=== PATIENT | male | born 1940 | race Hispanic/Latino ===

== ENCOUNTER 2020-03-27 21:14 | Observation (INO) | payer MEDICAID, MEDICARE, OTHER ==
[~2020-03-27] VITALS: Ht 175.3 cm; Wt 81.6 kg
--- NOTE | 2020-03-27 11:50 | NUR ---
ARRIVAL Pt transferred to unit via stretcher. Received report from ER nurse. Assumed care. No signs of distress noted.
--- NOTE | 2020-03-27 21:14 | NUR ---
ADMITTED TO ROOM #1 TRANSPORTED VIA EMS. ALERT AND ORIENTED X3. O2 SAT 95% ON RA. VITAL WNL.
--- NOTE | 2020-03-27 21:25 | NUR ---
LOW BP/URINE COLLECTED BP 96/67 RECHECKED BP BP 96/27 NEW ORDER FOR SALINE BOLUS URINE COLLED FOR UA
[2020-03-27] MEDS ORDERED: NS 1000ML 1,000 ML ONE (21:29)
[2020-03-27] MEDS ORDERED: NS 1000ML 1,000 ML IV STA (21:30)
--- NOTE | 2020-03-27 21:37 | ER.PDOC ---
General Stated Complaint: AMS Time seen by MD: 21:33 Source: patient, EMS, EMS notes reviewed Exam Limitations: no limitations History of Present Illness Initial Comments Altered mental status, no chest pain or SOB. Timing/Duration: 1-3 hours Character of AMS: disoriented Usually: orientedx3 Allergies: Coded Allergies: No Known Drug Allergies (Verified Allergy, Unknown, 03/27/20) Home Meds Reported Medications Escitalopram Oxalate (ESCITALOPRAM OXALATE) 10 Mg Tablet, 10 MG PO DAILY24, TAB 03/27/20 Divalproex Sodium (DIVALPROEX SODIUM) 500 Mg Tablet.dr, 250 MG PO HS 03/27/20 Cyanocobalamin (Vitamin B-12) (Vitamin B12) 2,500 Mcg Tablet, 100 MCG PO DAILY24, TAB 03/27/20 Carvedilol (CARVEDILOL) 12.5 Mg Tablet, 12.5 MG PO BID, TAB 03/27/20 Fluticasone/Vilanterol (Breo Ellipta 100-25 Mcg INH) 1 Each Aer.pow.ba, 1 EACH IH DAILY24, PKG 03/27/20 Aspirin (ASPIR 81) 81 Mg Tablet.dr, 81 MG PO DAILY24 03/27/20 Amlodipine Besylate (AMLODIPINE BESYLATE) 10 Mg Tablet, 10 MG PO DAILY24, TAB 03/27/20 Albuterol Sulfate (ALBUTEROL SULFATE) 0.63 Mg/3 Ml Vial.neb, 0.63 MG IH Q2, EA 03/27/20 Quetiapine Fumarate (SEROQUEL) 25 Mg Tablet, 25 MG PO HS, TAB 03/27/20 Carboxymethylcellulos/Glycerin (REFRESH OPTIVE EYE DROPS) 15 Ml Drops, 15 ML OP Q4, DROP 03/27/20 Medroxyprogesterone Acetate (PROVERA) 5 Mg Tablet, 5 MG PO DAILY24, TAB 03/27/20 Omeprazole (OMEPRAZOLE) 40 Mg Capsule.dr, 40 MG PO DAILY24, CAPSULE 03/27/20 Potassium Chloride (POTASSIUM CHLORIDE) 10 Meq Capsule.er, 10 MEQ PO DAILY24, CAP.SR 03/27/20 Metformin Hcl (METFORMIN HCL) 500 Mg Tablet, 500 MG PO TID, TAB 03/27/20 Magnesium Hydroxide (MILK OF MAGNESIA) 400 Mg/5 Ml Oral.susp, 400 MG PO Q6HR 03/27/20 Lisinopril (LISINOPRIL) 40 Mg Tablet, 40 MG PO DAILY24, TAB 03/27/20 Insulin Detemir (LEVEMIR) 100 Unit/1 Ml Vial, 25 UNIT SQ HS, VIAL 03/27/20 Past Medical History Medical History: COPD Review of Systems Constitutional: no symptoms reported Respiratory: no symptoms reported Cardiovascular: no symptoms reported Gastrointestinal: no symptoms reported Psychiatric/Neurological: see HPI All Other Systems: Reviewed and Negative Physical Exam General Appearance: alert, no distress HEENT: no apparent trauma, EOM's intact, no nystagmus, PERRL, ENT inspection nml, pharynx nml, airway intact, oral exam nml Neuro/Psych: nml speech/cognition, nml mood/affect, disoriented to place, disoriented to time Cranial Nerves: nml as tested Peripheral Exam: motor nml, sensation nml, reflexes nml Neck: supple, non-tender, no carotid bruit Respiratory: no resp distress, breath sounds nml CVS: reg rate & rhythm, heart sounds nml Abdomen: non-tender, no organomegaly, no distention Skin: color nml, no rash, warm/dry Extremities: non-tender, nml ROM, no pedal edema Results/Orders Results/Orders Orders - GABRIEL WORKMAN MD Urinalysis (03/27/20 21:25) 0.9 % Sodium Chloride (Ns 1000ml) (03/27/20 21:29) Cbc With Auto Diff (03/27/20 21:30) Comprehensive Metabolic Panel (03/27/20 21:30) Creatine Kinase (03/27/20 21:30) Creatine Kinase Mb (03/27/20 21:30) Troponin I (03/27/20 21:30) Probnp B-Type Safe And Vault Mechanic (03/27/20 21:30) PT (03/27/20 21:30) Partial Thromboplastin Time. (03/27/20 21:30) Xr Chest 1v (03/27/20 21:30) Ekg-Routine (03/27/20 21:30) Lactic Acid(Ml) (03/27/20 21:30) 0.9 % Sodium Chloride (Ns 1000ml) (03/27/20 21:30) Arterial Blood Gas (03/27/20 21:36) Vital Signs Date Time Temp Pulse Resp B/P (MAP) Pulse Ox O2 Delivery O2 Flow Rate FiO2 03/27/20 22:47 68 18 154/91 (112) 99 Room Air 03/27/20 21:46 98.9 70 18 122/67 (85) 95 Room Air 03/27/20 21:46 98.9 70 18 03/27/20 21:46 98.9 70 18 95 Administered Medications Medications (Trade) Dose Ordered Sig/Maria De Jesus Route PRN Reason Start Time Stop Time Status Last Admin Dose Admin Sodium Chloride 1,000 ml @ 1,200 mls/hr Q50M STAT IV 03/27/20 21:30 03/27/20 22:19 DC 03/27/20 22:01 1,200 MLS/HR Laboratory Tests Test 03/27/20 21:36 03/27/20 21:46 Blood Gas Sample Site RT BRACIAL ARTERY Blood pH 7.481 (7.350-7.450) Blood Gas PCO2 25.4 mmHg (35.0-45.0) L Blood Gas PO2 90.7 mmHg (80.0-100.0) Blood Gas HCO3 18.5 mmol/L (22.0-26.0) L Blood Gas Base Excess -3.3 mmol/L (-2.0-2.0) L Arterial Blood Oxygen Saturation 97.1 % (94.0-97.00) H Deoxyhemoglobin 2.7 % (0.0-5.0) Carboxyhemoglobin 5.3 % (0.0-3.9) H Methemoglobin 0.4 % (0.00-5.0) Total Hemoglobin 13.6 % (12.0-17.8) Total Oxygen Concentration 17.6 % (13.5-17.5) H Blood Gas Temperature 37.0 Oxygen Delivery Method ROOM AIR FiO2 0.21 % (20-101) L Total Carbon Dioxide 19.3 mmol/L (23-27) L White Blood Count 8.2 10^3/uL (4.5-11.0) Red Blood Count 4.21 10^6/uL (4.50-5.90) L Hemoglobin 12.7 g/dL (13.9-16.3) L Hematocrit 37.1 % (37.0-53.0) Mean Corpuscular Volume 88.1 fL (78-100) Mean Corpuscular Hemoglobin 30.2 pg (26-34) Mean Corpuscular Hemoglobin Concent 34.2 g/dL (33-36.5) Red Cell Distribution Width 14.2 % (11.5-14.5) Platelet Count 193 10^3/uL (150-400) Mean Platelet Volume 9.4 fL (7.8-11.0) Neutrophils (%) (Auto) 64.9 % (41.0-85.0) Lymphocytes (%) (Auto) 23.5 % (24.0-44.0) L Monocytes (%) (Auto) 9.3 % (5.0-12.0) Neutrophils # (Auto) 5.3 10^3/uL (1.8-7.7) Lymphocytes # (Auto) 1.93 10^3/uL1 (1.0-4.8) Monocytes # (Auto) 0.8 10^3/uL (0.3-0.8) Absolute Immature Granulocyte (auto 0.05 10^3 u/L (0-2) Absolute Eosinophils (auto) 0.1 10^3/uL (0.0-0.2) Immature Granulocytes % 0.60 % (0.00-0.50) H Eosinophils % 1.3 % (0.0-5.0) Basophils % 0.4 % (0.0-0.2) H Basophils # 0.0 10^3/uL (0.0-0.1) Prothrombin Time 10.3 SEC (9.3-11.3) Prothrombin Time INR (Non-Therap) 1.0 Activated Partial Thromboplast Time 20.8 SEC (24.67-30.72) Sodium Level 133 mmol/L (132-145) Potassium Level 3.7 mmol/L (3.6-5.2) Chloride Level 99.0 mmol/L (96-109) Carbon Dioxide Level 24.4 mmol/L (20.0-32) Anion Gap 13.3 Blood Urea Nitrogen 15 mg/dL (7-18) Creatinine 2.11 mg/dL (0.59-1.40) *H Estimated GFR () 36.9 (>/=60) Est GFR (CKD-EPI)(Non-Afr Bermudian) 30.5 (>/=60) BUN/Creatinine Ratio 7.0 Glucose Level 196 mg/dL (70-110) H Lactic Acid Level 2.7 mmol/L (0.5-1.9) *H Calcium Level 8.8 mg/dL (8.4-10.5) Total Bilirubin 0.3 mg/dL (0.2-1.0) Aspartate Amino Transferase (AST) 26 U/L (0-35) Alanine Aminotransferase (ALT) 24 U/L (12-78) Alkaline Phosphatase 67 U/L (50-136) Total Creatine Kinase 286 U/L (39-308) Creatine Kinase MB 3.8 ng/mL (0.5-3.6) H Troponin I < 0.02 ng/mL (0.00-0.05) Pro-B-Type Natriuretic Peptide 345 pg/mL (0-450) Total Protein 7.1 g/dL (6.4-8.2) Albumin 3.4 g/dL (3.4-5.0) Globulin 3.7 EKG/XRAY/CT/US XRAY: chest (No active disease) CT Comments: No acute intracranial abnormality Departure Time of Disposition: 22:56 Disposition: 09 ADMITTED INPATIENT Impression: Primary Impression: Altered mental status, unspecified Additional Impressions: BRANDYN (acute kidney injury) Dehydration Condition: Stable Comments Admitted to Dr. Kaye Duration or Time Spent with Pa: 60 min Problem Qualifiers Primary Impression: Altered mental status, unspecified Altered mental status type: unspecified Qualified Codes: R41.82 - Altered mental status, unspecified GABRIEL WORKMAN MD Mar 27, 2020 21:37
--- NOTE | 2020-03-27 21:45 | PCM.EKG ---
[facility] Test Date: 2020-03-27 Test Time: 21:28:58 Pat Name: DILLON FUENTES Department: Patient ID: [facility]-[id number] Room: 341 Gender: M Note Teller: NATAN : 1940 Requested By: GABRIEL WORKMAN Order Number: [id number] Reading MD: Gabriel WORKMAN Measurements Intervals [place] Rate: 65 P: 34 [place]: 206 QRS: 84 QRSD: 153 T: 22 QT: 428 QTc: 445 Interpretive Statements Sinus rhythm Right bundle branch block Baseline wander in lead(s) I,II,III,aVR,aVF,V1 No previous ECG available for comparison Electronically Signed On 03-29-2020 3:21:32 CDT by Gabriel WORKMAN Please click the below link to view image of tracing.
[2020-03-27 21:46] VITALS: BP 122/67
[2020-03-27 21:54] LABS: BASOPHIL % 0.4 % (0.0-0.2); EOSINOPHIL # 0.1 10^3/uL (0.0-0.2); EOSINOPHIL % 1.3 % (0.0-5.0); LYMPHOCYTES # 1.93 10^3/uL1 (1.0-4.8); LYMPHOCYTES % 23.5 % (24.0-44.0); MEAN CORP HGB 30.2 pg (26-34); MONOCYTES # 0.8 10^3/uL (0.3-0.8); MONOCYTES % 9.3 % (5.0-12.0); NEUTROPHIL # 5.3 10^3/uL (1.8-7.7); NEUTROPHILS % 64.9 % (41.0-85.0); PLATELET COUNT 193 10^3/uL (150-400); RED CELL DISTRIBUTION WIDTH 14.2 % (11.5-14.5)
[2020-03-27 21:56] LABS: ABG PCO2 25.4 mmHg (35.0-45.0); ABG PH 7.481 (7.350-7.450); BE(B) -3.3 mmol/L (-2.0-2.0); HCO3act 18.5 mmol/L (22.0-26.0); pO2 90.7 mmHg (80.0-100.0)
--- NOTE | 2020-03-27 22:15 | NUR ---
UNABLE TO VOID X3 NOTIFIED DR. RIOS. HE IS GOING TO CALL DR. HERNANDEZ ABOUT POSSIBLE ADMISSION AND LOCKWOOD PLACEMENT.
--- NOTE | 2020-03-27 22:17 | NUR ---
LAB CRITICAL LAB LACTIC ACID 2.7 REPORTED AT THIS TIME. EDP NOTIFIED.
--- NOTE | 2020-03-27 22:29 | DIREP ---
PROCEDURE:CHEST 1 VIEW COMPARISON:None. INDICATIONS:Altered mental status FINDINGS: LUNGS/PLEURA:No significant pulmonary parenchymal abnormalities. No effusions. VASCULATURE:Normal. Unremarkable pulmonary vasculature. CARDIAC:Normal. No cardiac silhouette abnormality or cardiomegaly. MEDIASTINUM:Normal. No visible mass or adenopathy. BONES:Diffuse degenerative changes. OTHER:Negative. CONCLUSION:No acute pulmonary process. Dictated by: Scotty Street M.D. on 03/27/2020 at 10:26 PM
[2020-03-27 22:37] LABS: ALANINE AMINOTRANSFERASE(ML) 24 U/L (12-78); ALKALINE PHOSPHATASE 67 U/L (50-136); ASPARTATE AMINO TRANSFERASE 26 U/L (0-35); CALCIUM 8.8 mg/dL (8.4-10.5); CARBON DIOXIDE 24.4 mmol/L (20.0-32); GLUCOSE 196 mg/dL (70-110)
[2020-03-27 22:47] VITALS: BP 154/91
--- NOTE | 2020-03-27 22:47 | NUR ---
DAVID ALEMAN MBA ON PHONE WITH DR. HERNANDEZ REGARDING POSSIBLE PT ADMISSION.
[2020-03-27] MEDS ORDERED: HNS 1000ML/KCL 20MEQ 1,000 ML IV STA (22:58)
[2020-03-27] MEDS ORDERED: FLUT1AER IH (23:08)
[2020-03-27] MEDS ORDERED: CARV12.52 PO (23:08)
[2020-03-27] MEDS ORDERED: LISI40TA PO (23:08)
[2020-03-27] MEDS ORDERED: MAGN400O7 PO (23:08)
[2020-03-27] MEDS ORDERED: INSU100V13 SQ (23:08)
[2020-03-27] MEDS ORDERED: ALBU0.63 IH (23:08)
[2020-03-27] MEDS ORDERED: POTA10CA PO (23:08)
[2020-03-27] MEDS ORDERED: CYAN25008 PO (23:08)
[2020-03-27] MEDS ORDERED: AMLO10TA8 PO (23:08)
[2020-03-27] MEDS ORDERED: OMEP40CA41 PO (23:08)
[2020-03-27] MEDS ORDERED: METF500T17 PO (23:08)
[2020-03-27] MEDS ORDERED: QUET25TA5 PO (23:08)
[2020-03-27] MEDS ORDERED: ASPI-485 PO (23:08)
[2020-03-27] MEDS ORDERED: ESCI10TA PO (23:08)
[2020-03-27] MEDS ORDERED: CARB15DR5 OP (23:08)
[2020-03-27] MEDS ORDERED: MEDR5TAB PO (23:08)
[2020-03-27] MEDS ORDERED: DIVA-54 PO (23:08)
--- NOTE | 2020-03-27 23:22 | NUR ---
16FR LOCKWOOD INSERTED 16FR LOCKWOOD INSERTED UTILIZING STRERILE TECHNIQUE. ATTACHED TO RIGHT LEG WITH STICKER TO HOLD IN PLACE. 190ML OF YELLOW COLORED URINE EMPTIED FROM LOCKWOOD BAG. UA COLLECTED AND BROUGHT TO THE LAB.
[2020-03-27 23:27] LABS: APPEARANCE,URINE CLEAR (CLEAR); BILIRUBIN,URINE NEGATIVE (NEGATIVE); UA COLOR YELLOW (YELLOW)
--- NOTE | 2020-03-27 23:45 | NUR ---
TRANSPORTED TO M/S FLOOR VIA STRETCHER TRANSPORTED TO /S ROOM # 341 BY MEGHAN MULLEN. THIS NURSE PHONED REPORT TO HA ORTIZ. [address]. HAD 1000ML IN THROUGH IV BOLUS AND 190ML OUTPUT VIA LOCKWOOD CATH. ALERT AND ORIENTED X3 UPON TRANSPORT.
[2020-03-27 23:50] VITALS: BP 148/80
[2020-03-28] MEDS ORDERED: HYDR12.58 PO (01:27)
[2020-03-28] MEDS ORDERED: TAMS-14 PO (01:27)
[2020-03-28] MEDS ORDERED: DULA1.5P SQ (01:27)
[2020-03-28] MEDS ORDERED: FURO-80 PO (01:27)
[2020-03-28] MEDS ORDERED: FENT1PAT75 TP (01:27)
[2020-03-28] MEDS ORDERED: TRAM-47 PO (01:27)
[2020-03-28] MEDS ORDERED: INSU100V5 IJ (01:27)
[2020-03-28] MEDS ORDERED: GABA100C7 PO (01:27)
[2020-03-28] MEDS ORDERED: ESCI5SOL2 PO (01:27)
[2020-03-28 07:30] VITALS: BP 132/75
--- NOTE | 2020-03-28 08:15 | NUR ---
DISCHARGE PLAN CM AT BEDSIDE TO VISIT WITH PATIENT REGARDING D/C PLAN AND GOALS. PATIENT IS A GROUP HOME RESIDENT AT [facility]. HE DOES USE A WALKER AND CANE AT THE FACILITY. PER TJ HINES WITH [facility] PATIENT IS USUALLY ABLE TO AMBULATE INDEPENDENTLY WITH HIS WALKER AND PERFORM ADLS. THE PHYSICIAN WHO OVERSEES PATIENTS AT THE FACILITY IS DR LAISHA YARBROUGH. DISCHARGE GOAL IS FOR PATIENT TO D/C BACK TO [facility] NUMBER TO CALL REPORT IS [phone].
[2020-03-28 09:28] VITALS: BP 132/75
[2020-03-28] MEDS ORDERED: VENTOLIN IH PRN (10:30)
[2020-03-28 12:19] VITALS: BP 131/67
[2020-03-28] MEDS ORDERED: PROTONIX PO SCH (13:00)
[2020-03-28] MEDS ORDERED: NORVASC PO SCH (13:00)
[2020-03-28] MEDS ORDERED: ASPIRIN EC PO SCH (13:00)
[2020-03-28] MEDS ORDERED: FLOMAX PO SCH (13:00)
[2020-03-28] MEDS ORDERED: MORPHINE SULFATE IV PRN (13:00)
[2020-03-28] MEDS ORDERED: PROVERA PO SCH (13:00)
[2020-03-28] MEDS ORDERED: CeleXA PO SCH (13:00)
[2020-03-28] MEDS ORDERED: NORCO 5MG PO PRN (13:00)
[2020-03-28 13:08] LABS: CALCIUM 8.8 mg/dL (8.4-10.5); CARBON DIOXIDE 27.7 mmol/L (20.0-32)
--- NOTE | 2020-03-28 14:34 | DIREP ---
PROCEDURE:CT HEAD OR BRAIN W/O CONTRAST COMPARISON:None. INDICATIONS:Encephalopathy TECHNIQUE:CT images were created without intravenous contrast. FINDINGS: VENTRICLES:There is mild prominence of the ventricles and cortical sulci consistent with age related involutional changes. CEREBRUM:Small foci of diminished attenuation in the supratentorial white matter consistent with mild leukoaraiosis. CEREBELLUM:Negative. BRAINSTEM:Negative. BASAL CISTERNS:Negative. SKULL:Normal. SINUSES:Normal. OTHER:None CONCLUSION: 1. No acute intracranial abnormality. 2. Mild age related senescent changes. Dictated by: Caleb Null M.D. on 03/28/2020 at 02:30 PM
--- NOTE | 2020-03-28 15:20 | PRM.DC ---
Subjective Subjective Date of Discharge: Mar 28, 2020 Time of Request to Discharge: 15:11 Exam Vital Signs Vital Signs Date Time Temp Pulse Resp B/P (MAP) Pulse Ox O2 Delivery O2 Flow Rate FiO2 03/28/20 13:59 71 131/67 03/28/20 12:19 97.5 19 93 Room Air General Appearance: Alert, Oriented X3, Cooperative, No acute distress HEENT: Atraumatic, PERRLA, EOMI, Mucous membr. moist/pink Respiratory: Clear to auscultation, Normal air movement Cardiovascular: Regular rate, Normal S1, Normal S2, No murmurs Abdominal: Normal bowel sounds, Soft, No tenderness, No hepatospenomegaly, No masses Extremities: No clubbing, No cyanosis, No edema, Normal pulses, No tenderness/swelling Skin: No rash, No breakdown, No lesions Neuro: Normal gait, Normal speech, Strength at 5/5 X4 ext, Normal tone, Sensation intact, Cranial nerves 3-12 NL, Reflexes 2+ Psych/Mental Status: Mental status NL, Mood NL VTE VTE Risk Total Score: 3 VTE Risk Score VTE Risk: Score 0-1 = Low Risk (Aggressive mobilization; early ambulation; no VTE prophylaxis required) Score 2: Moderate Risk (Intermittent/Pneumatic Compression Device OR Lovenox/Heparin/Coumadin) Score 3-4: High Risk (Intermittent/Pneumatic Compression Device AND Lovenox/Heparin/Coumadin) Score > or =5: Highest Risk (Intermittent/Pneumatic Compression Device AND Lovenox/Heparin/Coumadin) Antico:Hep/LMWH/Coum/Xarelto: Yes Mechanical device ordered: No Objective Vitals and I/O Vital Sign - Last 24 Hours 03/27/20 03/27/20 03/27/20 03/27/20 21:46 21:46 21:46 22:47 Temp 98.9 98.9 98.9 Pulse 70 70 70 68 Resp 18 18 18 18 B/P (MAP) 122/67 (85) 154/91 (112) Pulse Ox 95 95 99 O2 Delivery Room Air Room Air 03/27/20 03/28/20 03/28/20 03/28/20 23:50 02:39 03:37 07:30 Temp 97.8 97.7 Pulse 70 69 Resp 20 18 B/P (MAP) 148/80 (102) 132/75 (94) Pulse Ox 98 94 O2 Delivery Room Air Room Air Room Air Room Air 03/28/20 03/28/20 03/28/20 03/28/20 09:28 10:25 10:29 10:33 Temp 97.7 Pulse 69 68 70 Resp 18 18 18 18 B/P (MAP) 132/75 (94) Pulse Ox 90 90 94 O2 Delivery Room Air 03/28/20 03/28/20 12:19 13:59 Temp 97.5 Pulse 71 71 Resp 19 B/P (MAP) 131/67 (88) 131/67 Pulse Ox 93 O2 Delivery Room Air Intake and Output 03/28/20 07:00 Intake Total 1000 ml Balance 1000 ml All Results(Lab/Rad) Laboratory Tests Test 03/27/20 21:36 03/27/20 21:46 03/27/20 23:12 03/28/20 04:32 Blood Gas Sample Site RT BRACIAL ARTERY Blood Gas pH 7.481 Blood Gas PCO2 25.4 mmHg Blood Gas PO2 90.7 mmHg Blood Gas HCO3 18.5 mmol/L Blood Gas Base Excess -3.3 mmol/L Arterial Blood Oxygen Saturation 97.1 % Deoxyhemoglobin 2.7 % Carboxyhemoglobin 5.3 % Methemoglobin 0.4 % Total Hemoglobin 13.6 % Total Oxygen Concentration 17.6 % Blood Gas Temperature 37.0 Oxygen Delivery Method (LAB) ROOM AIR FiO2 0.21 % Total Carbon Dioxide 19.3 mmol/L White Blood Count 8.2 10^3/uL Red Blood Count 4.21 10^6/uL Hemoglobin 12.7 g/dL Hematocrit 37.1 % Mean Corpuscular Volume 88.1 fL Mean Corpuscular Hemoglobin 30.2 pg Mean Corpuscular Hemoglobin Concent 34.2 g/dL Red Cell Distribution Width 14.2 % Platelet Count 193 10^3/uL Mean Platelet Volume 9.4 fL Neutrophils (%) (Auto) 64.9 % Lymphocytes (%) (Auto) 23.5 % Monocytes (%) (Auto) 9.3 % Neutrophils # (Auto) 5.3 10^3/uL Lymphocytes # (Auto) 1.93 10^3/uL1 Monocytes # (Auto) 0.8 10^3/uL Absolute Immature Granulocyte (auto 0.05 10^3 u/L Absolute Eosinophils (auto) 0.1 10^3/uL Immature Granulocytes % 0.60 % Eosinophils % 1.3 % Basophils % 0.4 % Basophils # 0.0 10^3/uL Prothrombin Time 10.3 SEC Prothrombin Time INR (Non-Therap) 1.0 Activated Partial Thromboplast Time 20.8 SEC Sodium Level 133 mmol/L Potassium Level 3.7 mmol/L Chloride Level 99.0 mmol/L Carbon Dioxide Level 24.4 mmol/L Anion Gap 13.3 Blood Urea Nitrogen 15 mg/dL Creatinine 2.11 mg/dL Estimated GFR () 36.9 Est GFR (CKD-EPI)(Non-Afr Bhutanese) 30.5 BUN/Creatinine Ratio 7.0 Glucose Level 196 mg/dL Lactic Acid Level 2.7 mmol/L Calcium Level 8.8 mg/dL Total Bilirubin 0.3 mg/dL Aspartate Amino Transf (AST/SGOT) 26 U/L Alanine Aminotransferase (ALT/SGPT) 24 U/L Alkaline Phosphatase 67 U/L Total Creatine Kinase 286 U/L Creatine Kinase MB 3.8 ng/mL Troponin I < 0.02 ng/mL Pro-B-Type Natriuretic Peptide 345 pg/mL Total Protein 7.1 g/dL Albumin 3.4 g/dL Globulin 3.7 Urine Collection Type CCMS Urine Color YELLOW Urine Appearance CLEAR Urine Bilirubin NEGATIVE MG/DL Urine Ketones NEGATIVE Urine Specific [place] 1.015 Urine pH 7.0 Urine Protein NEGATIVE Urine Urobilinogen 1.0 Urine Nitrate NEGATIVE Urine Leukocyte Esterase NEGATIVE Urine Blood NEGATIVE Urine Glucose NORMAL Bedside Glucose 175 Test 03/28/20 06:00 03/28/20 07:30 03/28/20 11:29 03/28/20 12:44 Lactic Acid Level 0.8 mmol/L Bedside Glucose 158 258 Sodium Level 135 mmol/L Potassium Level 3.9 mmol/L Chloride Level 100.0 mmol/L Carbon Dioxide Level 27.7 mmol/L Anion Gap 11.2 Blood Urea Nitrogen 11 mg/dL Creatinine 1.25 mg/dL Estimated GFR () 67.6 Est GFR (CKD-EPI)(Non-Afr [place]utanese) 55.9 BUN/Creatinine Ratio 8.0 Glucose Level 238 mg/dL Calcium Level 8.8 mg/dL Total Bilirubin 0.4 mg/dL Aspartate Amino Transf (AST/SGOT) 28 U/L Alanine Aminotransferase (ALT/SGPT) 26 U/L Alkaline Phosphatase 72 U/L Ammonia 22 umol/L Total Protein 7.2 g/dL Albumin 3.4 g/dL Globulin 3.8 Current Medications Medications (Trade) Dose Ordered Sig/Maria De Jesus Route PRN Reason Start Time Stop Time Status Last Admin Dose Admin Sodium Chloride 1,000 ml @ ud STK-MED ONCE .ROUTE 03/27/20 21:29 03/27/20 21:31 DC Sodium Chloride 1,000 ml @ 1,200 mls/hr Q50M STAT IV 03/27/20 21:30 03/27/20 22:19 DC 03/27/20 22:01 Potassium Chloride/Sodium Chloride 1,000 ml @ 100 mls/hr Q10H STAT IV 03/27/20 22:58 03/28/20 08:57 DC 03/28/20 00:50 Albuterol Sulfate (Ventolin) 2.5 mg RTQ6 PRN IH WHEEZING 03/28/20 10:30 04/27/20 10:29 03/28/20 10:22 Amlodipine Besylate (Norvasc) 10 mg DAILY PO 03/28/20 13:00 04/27/20 12:59 03/28/20 13:59 Aspirin (Aspirin Ec) 81 mg DAILY PO 03/28/20 13:00 04/27/20 12:59 03/28/20 14:02 Carvedilol (Coreg) 12.5 mg BID PO 03/28/20 21:00 04/27/20 20:59 Citalopram Hydrobromide (CeleXA) 20 mg DAILY PO 03/28/20 13:00 04/27/20 12:59 03/28/20 13:59 Gabapentin (Neurontin) 300 mg BID PO 03/28/20 21:00 04/27/20 20:59 Magnesium Hydroxide (Milk Of Magnesia) 5 ml Q6HR PO 03/28/20 18:00 04/27/20 17:59 Medroxyprogesterone Acetate (Provera) 5 mg DAILY24 PO 03/28/20 13:00 03/28/20 13:56 DC Quetiapine Fumarate (Seroquel) 25 mg HS PO 03/28/20 21:00 04/27/20 20:59 Tamsulosin HCl (Flomax) 0.4 mg DAILY PO 03/28/20 13:00 04/27/20 12:59 03/28/20 14:02 Divalproex Sodium (Depakote Ec) 250 mg HS PO 03/28/20 21:00 04/27/20 20:59 Insulin Glargine (Lantus) 25 unit HS SQ 03/28/20 21:00 04/27/20 20:59 Pantoprazole Sodium (Protonix) 40 mg DAILY PO 03/28/20 13:00 04/27/20 12:59 03/28/20 14:02 Acetaminophen/ Hydrocodone Bitart ([place] 5mg) 1 ea Q6HR PRN PO PAIN 4 - 6 03/28/20 13:00 04/27/20 12:59 03/28/20 14:02 Morphine Sulfate (Morphine Sulfate) 2 mg Q4H PRN IV PAIN 4 - 6 03/28/20 13:00 04/27/20 12:59 Budesonide (Pulmicort) 0.5 mg RTBID IH 03/28/20 21:00 04/27/20 20:59 Medication Reconciliation Scheduled Albuterol Sulfate (Albuterol Sulfate), 0.63 MG IH Q2, (Reported) Amlodipine Besylate (Amlodipine Besylate), 10 MG PO DAILY24, (Reported) Aspirin (Aspir 81), 81 MG PO DAILY24, (Reported) Carboxymethylcellulos/Glycerin (Refresh Optive Eye Drops), 15 ML OP Q4, (Reported) Carvedilol (Carvedilol), 12.5 MG PO BID, (Reported) Cyanocobalamin (Vitamin B-12) (Vitamin B12), 100 MCG PO DAILY24, (Reported) Divalproex Sodium (Divalproex Sodium), 250 MG PO HS, (Reported) Dulaglutide (Trulicity), 1.5 MG SQ Q7D, (Reported) Escitalopram Oxalate (Escitalopram Oxalate), 10 MG PO DAILY24, (Reported) Escitalopram Oxalate (Escitalopram Oxalate), 5 MG PO DAILY24, (Reported) Fentanyl 25 Mcg/Hr (Duragesic 25 Mcg/Hr), 1 EACH TP Q72H, (Reported) Fluticasone/Vilanterol (Breo Ellipta 100-25 Mcg INH), 1 EACH IH DAILY24, (Reported) Furosemide (Lasix), 40 MG PO DAILY24, (Reported) Gabapentin (Gabapentin), 300 MG PO BID, (Reported) Hydrochlorothiazide (Hydrochlorothiazide), 12.5 MG PO DAILY24, (Reported) Insulin Detemir (Levemir), 25 UNIT SQ HS, (Reported) Insulin Regular, Human (Humulin R), 100 UNIT IJ AC, (Reported) Lisinopril (Lisinopril), 40 MG PO DAILY24, (Reported) Magnesium Hydroxide (Milk Of Magnesia), 400 MG PO Q6HR, (Reported) Medroxyprogesterone Acetate (Provera), 5 MG PO DAILY24, (Reported) Metformin Hcl (Metformin Hcl), 500 MG PO TID, (Reported) Omeprazole (Omeprazole), 40 MG PO DAILY24, (Reported) Potassium Chloride (Potassium Chloride), 10 MEQ PO DAILY24, (Reported) Quetiapine Fumarate (Seroquel), 25 MG PO HS, (Reported) Tamsulosin Hcl (Flomax), 0.4 MG PO DAILY24, (Reported) Scheduled PRN Tramadol Hcl (Ultram), 50 MG PO Q8 PRN for pain, (Reported) Plan Assessment Acute metabolic encephalopathy secondary to fentanyl patch Acute kidney injury with significantly improved renal function prior to discharge Lactic acidosis secondary to tissue hypoxia from fentanyl patch Essential hypertension Diabetes mellitus COPD Plan My Orders - MAYNOR MORTON MD Procedure Category Date Status Time Albuterol Sulfate PHA 03/28/20 In Process (Ventolin) 10:30 Resuscitation Status CODE 03/28/20 Transmitted 10:14 Ct Head Wo Contrast CT 03/28/20 Resulted 12:30 Ammonia LAB 03/28/20 Complete 12:30 Comprehensive LAB 03/28/20 Complete Metabolic Panel 12:30 Amlodipine Besylate PHA 03/28/20 In Process (Norvasc) 13:00 Aspirin (Aspirin Ec) PHA 03/28/20 In Process 13:00 Carvedilol (Coreg) PHA 03/28/20 In Process 21:00 Magnesium Hydroxide PHA 03/28/20 In Process (Milk Of Magnesia) 18:00 Medroxyprogesterone PHA 03/28/20 Complete Acetate (Provera) 13:00 Quetiapine Fumarate PHA 03/28/20 In Process (Seroquel) 21:00 Tamsulosin Hcl PHA 03/28/20 In Process (Flomax) 13:00 (Nf) Cyanocobalamin PHA 03/28/20 Complete (Vitamin B-12) ([place] 13:00 Divalproex Sodium PHA 03/28/20 In Process (Depakote Ec) 21:00 (Nf) Dulaglutide PHA 03/28/20 In Process (Trulicity) 13:00 (Nf) Escitalopram PHA 03/28/20 Complete Oxalate 13:00 (NF) PHA 03/28/20 Complete Fluticasone/Vilanterol 13:00 Insulin PHA 03/28/20 In Process Glargine,Hum.Rec.Anlog 21:00 Pantoprazole Sodium PHA 03/28/20 In Process (Protonix) 13:00 Hydrocodone/Acetaminophen PHA 03/28/20 In Process ([place] 5mg) 13:00 Morphine Sulfate PHA 03/28/20 In Process (Morphine Sulfate) 13:00 Gabapentin (Neurontin) PHA 03/28/20 In Process 21:00 Citalopram PHA 03/28/20 In Process Hydrobromide (Celexa) 13:00 Budesonide (Pulmicort) PHA 03/28/20 In Process 21:00 MAYNOR MORTON MD Mar 28, 2020 15:20
--- NOTE | 2020-03-28 15:42 | PCM.HP ---
History of Present Illness Reason for Visit: (1) Altered mental status, unspecified ICD Code: R41.82 - Altered mental status, unspecified SNOMED: 476617114 Was this Problem Present on Ad: Yes-DX present @time ofIP Hx of Present Illness This is a 79-year-old male patient who has history of essential hypertension, diabetes mellitus, chronic of the pulmonary disease, possible seizure disorder has been sent from assisted as patient has been extremely lethargic after patient was started on fentanyl patch for the first time at assisted because of her chronic pain. Otherwise no documented history of fever, travel. Denies any complaints of chest pain, cough, cold or congestion. No abdominal or urinary symptoms. Subsequently patient had evaluation in the emergency department and patient was found to be having significant lactic acidosis but patient has a normal urinalysis and chest x-ray. Otherwise the patient did not have any fever and white cell count was abnormal. Patient was also noted to be having acute kidney injury and so patient has been started on IV fluids and subsequently patient has been admitted to internal medicine service. Review of Systems Constitutional: No: Fever, Chills, Sweats, Weakness, Malaise, Other Eyes: No: Pain, Vision change, Conjunctivae inflammation, Eyelid inflammation, Other, Redness ENT: No: Ear pain, Ear discharge, Nose pain, Nose discharge, Nose congestion, Mouth pain, Mouth swelling, Throat pain, Throat swelling, Other Respiratory: No: Cough, Dry, Shortness of breath, SOB with excertion, Wheezing, Hemoptysis, Pleuritic Pain, Sputum, Wheezing, Other Cardiovascular: No: Chest Pain, Palpitations, Orthopnea, Paroxysmal Noc. Dyspnea, Edema, Lt Headedness, Other Gastrointestinal: No: Nausea, Vomiting, Abdominal Pain, Diarrhea, Constipation, Melena, Hematochezia, Other Genitourinary: No Dysuria, No Frequency, No Incontinence, No Hematuria, No Retention, No Other Musculoskeletal: back pain; No: other, neck pain, shoulder pain, arm pain, hand pain, leg pain, foot pain Skin: No: Rash, Lesions, Jaundice, Bruising, Other Neurological: No: Weakness, Numbness, Incoordination, Change in speech, Confusion, Seizures, Other Allergies: Coded Allergies: No Known Drug Allergies (Verified Allergy, Unknown, 03/27/20) Scheduled Albuterol Sulfate (Albuterol Sulfate), 0.63 MG IH Q2, (Reported) Amlodipine Besylate (Amlodipine Besylate), 10 MG PO DAILY24, (Reported) Aspirin (Aspir 81), 81 MG PO DAILY24, (Reported) Carboxymethylcellulos/Glycerin (Refresh Optive Eye Drops), 15 ML OP Q4, (Reported) Carvedilol (Carvedilol), 12.5 MG PO BID, (Reported) Cyanocobalamin (Vitamin B-12) (Vitamin B12), 100 MCG PO DAILY24, (Reported) Divalproex Sodium (Divalproex Sodium), 250 MG PO HS, (Reported) Dulaglutide (Trulicity), 1.5 MG SQ Q7D, (Reported) Escitalopram Oxalate (Escitalopram Oxalate), 10 MG PO DAILY24, (Reported) Escitalopram Oxalate (Escitalopram Oxalate), 5 MG PO DAILY24, (Reported) Fentanyl 25 Mcg/Hr (Duragesic 25 Mcg/Hr), 1 EACH TP Q72H, (Reported) Fluticasone/Vilanterol (Breo Ellipta 100-25 Mcg INH), 1 EACH IH DAILY24, (Reported) Furosemide (Lasix), 40 MG PO DAILY24, (Reported) Gabapentin (Gabapentin), 300 MG PO BID, (Reported) Hydrochlorothiazide (Hydrochlorothiazide), 12.5 MG PO DAILY24, (Reported) Insulin Detemir (Levemir), 25 UNIT SQ HS, (Reported) Insulin Regular, Human (Humulin R), 100 UNIT IJ AC, (Reported) Lisinopril (Lisinopril), 40 MG PO DAILY24, (Reported) Magnesium Hydroxide (Milk Of Magnesia), 400 MG PO Q6HR, (Reported) Medroxyprogesterone Acetate (Provera), 5 MG PO DAILY24, (Reported) Metformin Hcl (Metformin Hcl), 500 MG PO TID, (Reported) Omeprazole (Omeprazole), 40 MG PO DAILY24, (Reported) Potassium Chloride (Potassium Chloride), 10 MEQ PO DAILY24, (Reported) Quetiapine Fumarate (Seroquel), 25 MG PO HS, (Reported) Tamsulosin Hcl (Flomax), 0.4 MG PO DAILY24, (Reported) Scheduled PRN Tramadol Hcl (Ultram), 50 MG PO Q8 PRN for pain, (Reported) VTE VTE Risk Total Score: 3 VTE Risk Score VTE Risk: Score 0-1 = Low Risk (Aggressive mobilization; early ambulation; no VTE prophylaxis required) Score 2: Moderate Risk (Intermittent/Pneumatic Compression Device OR Lovenox/Heparin/Coumadin) Score 3-4: High Risk (Intermittent/Pneumatic Compression Device AND Lovenox/Heparin/Coumadin) Score > or =5: Highest Risk (Intermittent/Pneumatic Compression Device AND Lovenox/Heparin/Coumadin) Antico:Hep/LMWH/Coum/Xarelto: Yes Mechanical device ordered: No VTE VTE Present on Admission: No Currently receiving anticoagul: No VTE Risk Total Score: 3 Antico:Hep/LMWH/Coum/Xarelto: Yes Mechanical device ordered: No Exam Vital Signs Vital Signs Date Time Temp Pulse Resp B/P (MAP) Pulse Ox O2 Delivery O2 Flow Rate FiO2 03/28/20 13:59 71 131/67 03/28/20 12:19 97.5 19 93 Room Air General Appearance: Alert, Oriented X3, Cooperative, No acute distress HEENT: Atraumatic, PERRLA, EOMI, Mucous membr. moist/pink Respiratory: Clear to auscultation, Normal air movement Cardiovascular: Regular rate, Normal S1, Normal S2, No murmurs Abdominal: Normal bowel sounds, Soft, No tenderness, No hepatospenomegaly, No masses Extremities: No clubbing, No cyanosis, No edema, Normal pulses, No tenderness/swelling Skin: No rash, No breakdown, No lesions Neuro: Normal gait, Normal speech, Strength at 5/5 X4 ext, Normal tone, Sensation intact, Cranial nerves 3-12 NL, Reflexes 2+ Psych/Mental Status: Mental status NL, Mood NL Assessment/Plan Assessment/Plan Problems: (1) Altered mental status, unspecified Status: Acute SEVERITY: MILD INTERMITTENT ICD Code: R41.82 - Altered mental status, unspecified SNOMED: 744493784 (2) BRANDYN (acute kidney injury) Status: Acute ICD Code: N17.9 - Acute kidney failure, unspecified SNOMED: 41364122, 3948299 (3) Lactic acidosis Status: Acute ICD Code: E87.2 - Acidosis SNOMED: 24404976 (4) Essential hypertension Status: Chronic ICD Code: I10 - Essential (primary) hypertension SNOMED: 58371461 (5) Diabetes mellitus Status: Chronic ICD Code: E11.9 - Type 2 diabetes mellitus without complications SNOMED: 51162619 (6) COPD (chronic obstructive pulmonary disease) Status: Chronic ICD Code: J44.9 - Chronic obstructive pulmonary disease, unspecified SNOMED: 05516007 Plan Acute metabolic encephalopathy Secondary to fentanyl patch. Avoid fentanyl patch and try to limit opioid pain medications. Unremarkable CT scan of the head without contrast. Normal ammonia level. Currently with completely normalized mental status. Unlikely to be any infectious etiology based on normal urinalysis, chest x-ray and patient has remained afebrile without any leukocytosis. Acute kidney injury Secondary to diuretics, metformin and SYED inhibitors along with dehydration. Currently with a significantly improved renal function with creatinine of 1.2 with IV hydration. Patient has been advised to have increased oral fluid intake. Continue to avoid metformin and SYED inhibitor for the next few days until patient has been evaluated by the primary care physician at assisted. Lactic acidosis Possibly secondary to tissue hypoxia but otherwise not related to any sepsis. Essential hypertension Hold SYED inhibitor's but otherwise continue to monitor blood pressure closely. COPD Currently with no bronchospasm Consider inhaled bronchodilators as needed. Diabetes mellitus Currently with moderately controlled glucose levels. Continue insulin sliding scale coverage otherwise hold metformin. Problem Qualifiers (1) Altered mental status, unspecified: Altered mental status type: unspecified Qualified Codes: R41.82 - Altered mental status, unspecified MAYNOR MORTON MD Mar 28, 2020 15:42
--- NOTE | 2020-03-28 16:52 | NUR ---
Discharge Resident IV access Dc'd and Johnson at this time. Patient voided in commode at this time. Education provided r/t drinking fluids through out the day, SOB on exertion, safety awareness during transfers, and discharging to [facility]. No needs at this time. Patient awaiting ride in room.
[2020-03-28 17:16] VITALS: BP 131/67
[2020-03-28 17:56] VITALS: BP_SYST 148; BP_SYST 150; BP_DIAS 45; BP_DIAS 90
[2020-03-28] MEDS ORDERED: MILK OF MAGNESIA PO SCH (18:00)
[2020-03-28] MEDS ORDERED: DEPAKOTE EC PO SCH (21:00)
[2020-03-28] MEDS ORDERED: COREG PO SCH (21:00)
[2020-03-28] MEDS ORDERED: LANTUS SQ SCH (21:00)
[2020-03-28] MEDS ORDERED: NEURONTIN PO SCH (21:00)
[2020-03-28] MEDS ORDERED: SEROQUEL PO SCH (21:00)
[2020-03-28] MEDS ORDERED: PULMICORT IH SCH (21:00)
== END 2020-03-28 16:52 ==
LOC: EDBD 21:14 → ER 21:14 → MS 22:58 → EEVIPCON 22:58
PROVIDERS: ADMIT Family Medicine; ATTEND Hospitalist
DX: R41.82 Altered mental status, unspecified (principal); N17.9 Acute kidney failure, unspecified; E87.2 Acidosis; I10 Essential (primary) hypertension; E11.9 Type 2 diabetes mellitus without complications; J44.9 Chronic obstructive pulmonary disease, unspecified; E86.0 Dehydration; G92 Toxic encephalopathy; T40.4X5A Adverse effect of other synthetic narcotics, initial encounter; R09.02 Hypoxemia; Z79.82 Long term (current) use of aspirin; Z79.899 Other long term (current) drug therapy; Z79.4 Long term (current) use of insulin
CPT/HCPCS: 36415 ×2; 36600; 70450; 71045; 80053 ×2; 81002; 82140; 82550; 82553; 82803; 82948; 83605 ×2; 83880; 84484; 85025; 85610; 85730; 93005; 94640; 96360; 96361; 99285; G0378 ×2; J7030 ×2; J7613

== ENCOUNTER → 2020-06-15 | Outpatient (CLI) | payer OTHER ==
[~2020-06-15] MED LIST: ALBU0.63 IH; AMLO-170 PO; ASPI-485 PO; CARB15DR5 OP; CARV12.52 PO; CYAN25008 PO; DIVA-54 PO; DULA1.5P SQ; ESCI10TA PO; ESCI5SOL2 PO; FENT1PAT75 TP; FLUT1AER IH; FURO-80 PO; GABA100C7 PO; HYDR12.58 PO; INSU100V13 SQ; INSU100V5 IJ; LISI40TA PO; MAGN400O7 PO; MEDR5TAB PO; METF500T17 PO; OMEP40CA41 PO; POTA10CA PO; QUET25TA5 PO; TAMS-14 PO; TRAM-47 PO
[2020-06-15 13:18] LABS: MEAN CORP HGB 30.1 pg (26-34); RED CELL DISTRIBUTION WIDTH 13.8 % (11.5-14.5)
[2020-06-15 13:50] LABS: CALCIUM 9.8 mg/dL (8.4-10.5); CARBON DIOXIDE 25.8 mmol/L (20.0-32)
== END | disposition home or self-care (01) ==
LOC: NPLAB 13:03
PROVIDERS: ATTEND Internal Medicine
DX: I10 Essential (primary) hypertension (principal); R50.81 Fever presenting with conditions classified elsewhere
CPT/HCPCS: 80053; 85027; 87070; 87804; 87880

== ENCOUNTER → 2020-10-03 | Outpatient (CLI) | payer OTHER ==
[~2020-10-03] MED LIST changes: -ESCI10TA PO; +ESCI10TA5 PO
[2020-10-03 18:12] LABS: APPEARANCE,URINE CLEAR (CLEAR); BILIRUBIN,URINE NEGATIVE (NEGATIVE); UA COLOR YELLOW (YELLOW)
== END | disposition home or self-care (01) ==
LOC: NPLAB 16:23
PROVIDERS: ATTEND Internal Medicine
DX: N39.0 Urinary tract infection, site not specified (principal)
CPT/HCPCS: 81000; 87086

== ENCOUNTER → 2021-09-05 | Outpatient (CLI) | payer OTHER ==
[~2021-09-05] MED LIST changes: -ESCI10TA5 PO; +ESCI10TA93 PO; -LISI40TA PO; +LISI40TA10 PO; -OMEP40CA41 PO; +OMEP40CA8 PO
[2021-09-05 15:18] LABS: BILIRUBIN,URINE NEGATIVE (NEGATIVE); UROBILINOGEN,URINE 0.2 E.U./dL (0.2)
== END | disposition home or self-care (01) ==
LOC: NPLAB 14:59
PROVIDERS: ATTEND Internal Medicine
DX: N39.0 Urinary tract infection, site not specified (principal)
CPT/HCPCS: 81001; 87086

== ENCOUNTER → 2021-09-19 | Outpatient (CLI) | payer MEDICARE, OTHER ==
[2021-09-19 19:08] LABS: MEAN CORP HGB 29.6 pg (26-34)
[2021-09-19 19:09] LABS: CARBON DIOXIDE 29.9 mmol/L (20.0-32)
== END | disposition home or self-care (01) ==
LOC: NPLAB 18:46
PROVIDERS: ATTEND Internal Medicine
DX: B34.2 Coronavirus infection, unspecified (principal)
CPT/HCPCS: 36415; 80048; 85027